=== PATIENT | male | born 2000 | race African-American/Black ===

== ENCOUNTER 2022-11-26 20:55 | Emergency (ER) | payer SELFPAY ==
[2022-11-26] MEDS ORDERED: IBUPROFEN 800MG TABLET PO ONE (23:00)
[2022-11-26 23:45] VITALS: BP 128/80
[2022-11-27] MEDS ORDERED: IBUP-2029 MT (00:11)
== END 2022-11-27 01:39 | disposition home or self-care (01) ==
LOC: ER 20:55
DX: S90.02XA Contusion of left ankle, initial encounter (principal); X58.XXXA Exposure to other specified factors, initial encounter; Y93.67 Activity, basketball; Y92.89 Other specified places as the place of occurrence of the external cause; Y99.8 Other external cause status
CPT/HCPCS: 29515; 73610; 73630; 99284